=== PATIENT | male | born 1975 | race Caucasian/White ===

== ENCOUNTER 2020-04-09 15:36 | Emergency (ER) | payer BC ==
[2020-04-09] MEDS ORDERED: Dexamethasone 4 MG Tab PO ONE (16:30)
[2020-04-09] MEDS ORDERED: Ketorolac 15 MG/ML SDV IM ONE (16:31)
--- NOTE | 2020-04-09 17:45 | CR ---
Indication: Sore throat and pain with swelling for 5 days. Technique: Soft tissue neck, 2 views. Comparison: None. Findings: The pharynx, larynx, and trachea are widely patent. Paravertebral soft tissues are unremarkable. Cervical spine vertebral bodies have normal height and alignment. The lung apices are clear. Impression: No acute findings. Dictated by Grazyna Slater MD @ Apr 09 2020 5:40PM Signed by Dr. Grazyna Slater @ Apr 09 2020 5:44PM
--- NOTE | 2020-04-09 17:49 | EDM.PDOC ---
ED HPI GENERAL MEDICAL PROBLEM - General Chief Complaint: ENT Problem Stated Complaint: SINUS PRESSURE SORE THROAT Time Seen by Provider: 04/09/20 16:14 - History of Present Illness INITIAL COMMENTS - FREE TEXT/NARRATIVE: CHIEF COMPLAINT(S): Sore throat HISTORY OF PRESENT ILLNESS: This is a 43-year-old man without any significant past medical history who comes to the emergency department with a chief complaint of sore throat. The patient states for the last 5 days he has been experiencing a sore throat. He feels like his tonsils are swollen. He states that there is some pain when he swallows but denies any shortness of breath. States that he does have a cough which is nonproductive. He denies any fevers or chills and states that his throat just feels scratchy. States that he been taking NyQuil and Sudafed with minimal relief. He states that he is also been taking aspirin without any relief. He denies any other symptoms except for runny nose. He denies any chest pain, shortness of breath, fever, chills. REVIEW OF SYSTEMS: Constitutional: Denies fever, chills. Eyes: Denies eye pain Ears, Nose, Mouth, & Throat: Positive for sore throat Cardiovascular: Denies chest pain Respiratory: Positive for nonproductive cough. Denies shortness of breath Gastrointestinal: Denies Nausea, vomiting, diarrhea, hematochezia. Genitourinary: Denies hematuria Skin:Denies a rash Neurological: Denies blurred vision Psychiatric: Denies depression PAST MEDICAL HISTORY: As per history of present illness and as reviewed below otherwise noncontributory. SURGICAL HISTORY: As per history of present illness and as reviewed below otherwise noncontributory. SOCIAL HISTORY: As per history of present illness and as reviewed below otherwise noncontributory. FAMILY HISTORY: As per history of present illness and as reviewed below otherwise noncontributory. EXAMINATION OF ORGAN SYSTEMS/BODY AREAS: Constitutional: Blood pressure is 149/84, heart rate 66, respiratory rate 17 with an oxygen saturation of 97% on room air. Temperature 36.6 General: Overall well-appearing man who is in no acute distress Psychiatric: Appropriate mood and affect. Eyes: No scleral icterus or conjunctival erythema ENMT: Moist mucous membranes. There is no stridor or drooling. Patient's voice does not appear to be muffled. Posterior pharyngeal area is erythematous and tonsils are mildly swollen without any exudates. Uvula is midline. Cardiovascular: Regular, rate, and rhythm. No gallops, murmurs, or rubs. Bilateral upper extremity pulses symmetric and intact. No Respiratory: Lungs clear to auscultation bilaterally. No wheezes, rales, or rhonchi. Gastrointestinal: Soft, non-tender, non-distended. Normoactive bowel sounds Genitourinary: No suprapubic tenderness Musculoskeletal: Normal range of motion. Skin: No lesions or abrasions. Neurological: Alert, GCS 15 MEDICAL DECISION MAKING AND COURSE IN THE ED WITH INTERPRETATION/REVIEW OF DIAGNOSTIC STUDIES: This is a 43-year-old man without any significant past medical history who comes to the emergency department with 5 days of sore throat resistant to home medications who has a nonproductive cough. At this time we will obtain a strep swab and obtain a neck soft tissue x-ray to evaluate for any abnormality. We will provide the patient with Toradol and dexamethasone. I do not believe any other labs or imaging are indicated. The patient does not have any signs of airway compromise at this time. Laboratory: Rapid strep is negative. The radiological images were viewed by myself along with reading the report from the radiologist. Soft tissue neck 2 views does not reveal any acute findings. After labs and imaging I did reevaluate the patient. The patient stated that his pain had improved. I did discuss with him at this time the use of over -the-counter Motrin for pain relief. I discussed the importance of following up with his primary care physician. He is to return for any new or worsening symptoms. The patient was amenable to discharge at this time and had no further questions. DISPOSITION: The patient was discharged home in stable condition. The patient will follow up with PCP within 2 to 3 days CONDITION: Fair PROCEDURES: None FINAL IMPRESSION(S)/DIAGNOSES: 1. Acute pharyngitis, suspect viral Vimal Rodriguez M.D. throat Pain Score (Numeric/FACES): 6 ED ROS ENT - Review of Systems Review Of Systems: See Below ED EXAM, ENT - Physical Exam Exam: See Below Course - Vital Signs Last Recorded V/S: Last Vital Signs Temp 36.6 C 04/09/20 16:15 Pulse 66 04/09/20 16:15 Resp 17 04/09/20 16:15 BP 149/84 H 04/09/20 16:15 Pulse Ox 97 04/09/20 16:15 - Orders/Labs/Meds Orders: Active Orders 24 hr Category Date Time Status CULTURE STREP A CONFIRMATION [RM] Stat Lab 04/09/20 16:50 Results STREP SCRN A RAPID W CULT CONF [RM] Stat Lab 04/09/20 16:50 Results Meds: Medications Discontinued Medications Generic Name Dose Route Start Last Admin Trade Name Isabella PRN Reason Stop Dose Admin Dexamethasone 10 mg 04/09/20 16:30 04/09/20 16:43 Dexamethasone PO 04/09/20 16:31 10 mg ONETIME ONE Administration Ketorolac Tromethamine 15 mg 04/09/20 16:31 04/09/20 16:41 Toradol IM 04/09/20 16:32 15 mg ONETIME ONE Administration Departure - Departure Time of Disposition: 17:47 Disposition: Home, Self-Care 01 Condition: Fair Clinical Impression: Pharyngitis Qualifiers: Pharyngitis/tonsillitis etiology: unspecified etiology Qualified Code(s): J02.9 - Acute pharyngitis, unspecified - Discharge Information *PRESCRIPTION DRUG MONITORING PROGRAM REVIEWED*: No *COPY OF PRESCRIPTION DRUG MONITORING REPORT IN PATIENT DANA: No Instructions: Pharyngitis, [id number] Referrals: PCP,None [Primary Care Provider] - Forms: ED Department Discharge Additional Instructions: The patient is informed of any results of their evaluation and diagnostic workup and all questions are answered. They are given discharge instructions and return precautions. The patient is stable for discharge. The patient states they understand and agree with the plan and that they will return if their symptoms get worse or if they have any new concerns. The following information is given to patients seen in the emergency department who are being discharged to home. This information is to outline your options for follow-up care. We provide all patients seen in our emergency department with a follow-up referral. The need for follow-up, as well as the timing and circumstances, are variable depending upon the specifics of your emergency department visit. If you don't have a primary care physician on staff, we will provide you with a referral. We always advise you to contact your personal physician following an emergency department visit to inform them of the circumstance of the visit and for follow-up with them and/or the need for any referrals to a consulting specialist. The emergency department will also refer you to a specialist when appropriate. This referral assures that you have the opportunity for follow-up care with a specialist. All of these measure are taken in an effort to provide you with optimal care, which includes your follow-up. Under all circumstances we always encourage you to contact your private physician who remains a resource for coordinating your care. When calling for follow-up care, please make the office aware that this follow-up is from your recent emergency room visit. If for any reason you are refused follow-up, please contact the [facility] Emergency Department at and asked to speak to the emergency department charge nurse. Your evaluated on emergent basis today. Your strep test was negative. Please continue to use ibuprofen 400 mg every 6 hours as needed for pain relief. Please return to the emergency department if you have trouble breathing, worsening pain with swallowing, or voice changes. Please follow-up with your primary care physician as needed. [facility] - [facility] [address] [place] [address] [place] [address] Sepsis Event Note (ED) - Evaluation Sepsis Screening Result: No Definite Risk - Focused Exam Vital Signs: Vital Signs Temp Pulse Resp BP Pulse Ox 04/09/20 16:15 36.6 C 66 17 149/84 H 97 - My Orders Last 24 Hours: My Active Orders 04/09/20 16:50 CULTURE STREP A CONFIRMATION [RM] Stat STREP SCRN A RAPID W CULT CONF [RM] Stat - Assessment/Plan Last 24 Hours: My Active Orders 04/09/20 16:50 CULTURE STREP A CONFIRMATION [RM] Stat STREP SCRN A RAPID W CULT CONF [RM] Stat
--- NOTE | 2020-04-11 11:18 | PCM.SN.2 ---
- Free Text/Narrative Note: Contacted patient to follow up. Patient stated that he was still having a sore throat however it seems to be improving. No change in management at this time. Discussed final results of strep test being negative. Discussed following up with his PCP.
== END 2020-04-09 18:04 | disposition home or self-care (01) ==
LOC: MW.ED 15:36
DX: J02.9 Acute pharyngitis, unspecified (principal)
CPT/HCPCS: 70360; 87081; 87880; 96372; 99284; J1885; J8540; 99282